=== PATIENT | male | born 2000 | race Two or more races ===

== ENCOUNTER 2021-12-03 16:12 | Emergency (ER) | payer OTHER ==
[~2021-12-03] VITALS: Ht 185.4 cm; Wt 105.7 kg
[2021-12-03] MEDS ORDERED: FLUCONAZOLE150 MG PO (17:20)
== END 2021-12-03 19:26 | disposition home or self-care (01) ==
LOC: ER 16:12
DX: N48.1 Balanitis (principal); N48.89 Other specified disorders of penis

== ENCOUNTER → 2022-05-03 | Emergency (ER) | payer OTHER ==
[~2022-05-03] MED LIST: ALBUTEROL2.5 MG/3 M IH; BUDESONIDE0.5 MG/2 M IH; FLUCONAZOLE150 MG PO; MOTRIN; SINGULAIR 10MG10 MG PO; ZITHROMAX500 MG PO; ZYNCOF 20-400120 ML PO
== END | disposition home or self-care (01) ==
LOC: ER 10:07
DX: J40 Bronchitis, not specified as acute or chronic (principal); Z87.09 Personal history of other diseases of the respiratory system

== ENCOUNTER 2022-12-03 17:50 | Emergency (ER) | payer OTHER ==
[~2022-12-03] VITALS: Ht 185.4 cm; Wt 102.1 kg
[2022-12-03 22:09] LABS: HEMATOCRIT 41.6 % (39.0-48.0); MEAN CELL VOLUME 85.5 fL (80.0-100.00); MEAN CORPUSCULAR HEMOGLOBIN 28.9 pg (27.00-32.0); MEAN CORPUSCULAR HGB CONC 33.7 g/dl (32.0-36.0); RED BLOOD COUNT 4.87 M/uL (4.00-6.00); RED CELL DISTRIBUTION WIDTH 12.2 % (11.5-14.5)
[2022-12-03 22:21] LABS: PLATELET COUNT 112 K/uL (150-450)
[2022-12-03 22:38] LABS: BILIRUBIN TOTAL 0.91 mg/dL (0.3-1.2); GFR 92.6; GLOBULINA 3.7 G/DL (2.4-3.5); POTASSIUM 3.75 mEq/L (3.5-5.1); TOTAL PROTEIN 7.7 gm/dL (6.4-8.2)
== END 2022-12-04 01:24 | disposition home or self-care (01) ==
LOC: ER 17:50
PROVIDERS: General Practice
DX: J06.9 Acute upper respiratory infection, unspecified (principal); J45.901 Unspecified asthma with (acute) exacerbation; Z20.822 Contact with and (suspected) exposure to COVID-19